=== PATIENT | female | born 1970 ===

== ENCOUNTER 2017-07-25 12:36 | Emergency (ER) | payer OTHER ==
[2017-07-25 12:40] VITALS: BP 129/84; PULSE 71; RESP 22; TEMP 99; O2SAT 99
--- NOTE | 2017-07-25 12:59 | ED PDOC ---
HPI: Trauma/Fall - HPI Time Seen by Provider: 07/25/17 12:38 Chief Complaint (Nursing): Back Pain Chief Complaint (Provider): Fall, Back pain History Per: Patient History/Exam Limitations: no limitations Onset/Duration Of Symptoms: Mins Injury Occurred (Timing): Just Before Arrival Additional Complaint(s): 46 year old female presents to the Emergency Department via EMS for evaluation after sustaining a fall just prior to arrival. Patient reports she slipped and fell on wet floor at the [facility], falling backwards. States that her right leg came out in front of her and the left leg went back. Denies any head injury or LOC. Patient is now complaining of pain to the right knee, right hip, and bilateral lower back. Denies any abdominal pain, chest pain, or other injury. 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 PMD: None Past Medical History Reviewed: Historical Data, Nursing Documentation, Vital Signs Vital Signs: Last Vital Signs Temp 99.0 F 07/25/17 12:38 Pulse 71 07/25/17 12:38 Resp 22 07/25/17 12:38 BP 129/84 07/25/17 12:38 Pulse Ox 99 07/25/17 13:19 - Medical History PMH: No Chronic Diseases - Surgical History Other surgeries: Breast surgery for tumor removal - Family History Family History: States: Unknown Family Hx - Social History Current smoker - smoking cessation education provided: No Alcohol: None Drugs: Denies - Home Medications Home Medications: Ambulatory Orders Medication Instructions Recorded Cyclobenzaprine [Cyclobenzaprine 10 mg PO Q8 PRN #10 tab 07/25/17 HCl] Naproxen [Naprosyn] 500 mg PO BID PRN #10 tab 07/25/17 - Allergies Allergies/Adverse Reactions: Allergies Allergy/AdvReac Type Severity Reaction Status Date / Time No Known Allergies Allergy Verified 07/25/17 12:38 Review of Systems ROS Statement: Except As Marked, All Systems Reviewed And Found Negative Cardiovascular: Negative for: Chest Pain Gastrointestinal: Negative for: Abdominal Pain Musculoskeletal: Positive for: Back Pain, Leg Pain (right hip, right knee) Neurological: Negative for: Other (head injury, LOC) Physical Exam - Reviewed Nursing Documentation Reviewed: Yes Vital Signs Reviewed: Yes - Physical Exam Appears: Positive for: In Acute Distress (mild painful distress) Head Exam: Positive for: ATRAUMATIC, NORMAL INSPECTION, NORMOCEPHALIC Skin: Positive for: Normal Color, Warm, Dry Eye Exam: Positive for: Normal appearance Neck: Positive for: Normal, Painless ROM (with no midline cervical tenderness) Cardiovascular/Chest: Positive for: Regular Rate, Rhythm, Chest Non Tender. Negative for: Murmur Respiratory: Positive for: Normal Breath Sounds. Negative for: Accessory Muscle Use, Respiratory Distress Pulses-Dorsalis Pedis (L): 2+ Pulses-Dorsalis Pedis (R): 2+ Gastrointestinal/Abdominal: Positive for: Normal Exam, Soft, Other (No ecchymosis). Negative for: Tenderness Back: Positive for: Normal Inspection, Other (bilateral paralumbar tenderness). Negative for: L CVA Tenderness, R CVA Tenderness, Vertebral Tenderness Extremity: Positive for: Other (right knee with mild swelling with full ROM actively; right hip with minimal tenderness, with full ROM actively and passively of both hips; right leg is shortened) Neurologic/Psych: Positive for: Alert, Oriented - ECG O2 Sat by Pulse Oximetry: 99 (RA) Pulse Ox Interpretation: Normal - Radiology X-Ray: Interpreted by Me (LS spine, R hip/pelvis, R knee x-rays) X-Ray Interpretation: No Acute Disease Medical Decision Making Medical Decision Making: Initial Impression: Fall, back pain, right knee and hip pain Time: 12:44 Initial Plan: --X-ray right hip w/ pelvis --X-ray lumbar spine --X-ray right knee --Flexeril 10 mg PO --Motrin 600 mg PO 1339 On re-evaluation, pt. seen ambulating with steady unassisted gait. Informed of results. Advised to f/u with [facility] for further evaluation. Scribe Attestation: Documented by Kami Jama, acting as a scribe for Liborio Dennis PA-C. Provider Scribe Attestation: All medical record entries made by the Scribe were at my direction and personally dictated by me. I have reviewed the chart and agree that the record accurately reflects my personal performance of the history, physical exam, medical decision making, and the department course for this patient. I have also personally directed, reviewed, and agree with the discharge instructions and disposition. Disposition - Clinical Impression Clinical Impression: Low back pain, Hip injury, Knee injury - Patient ED Disposition Is Patient to be Admitted: No - Disposition Disposition: Routine/Home Disposition Time: 13:42 Condition: IMPROVED Additional Instructions: Follow up with [facility] for further evaluation. Return to ED immediately if symptoms worsen. Prescriptions: Cyclobenzaprine [Cyclobenzaprine HCl] 10 mg PO Q8 PRN #10 tab PRN Reason: Muscle Spasm Naproxen [Naprosyn] 500 mg PO BID PRN #10 tab PRN Reason: Pain Instructions: Low Back Pain (DC), Hip Pain (DC), Knee Sprain (DC) Forms: [employer] (f. [employer]) (Yemeni) Print Language: MACEDONIAN
--- NOTE | 2017-07-25 14:20 | RAD ---
PROCEDURE: Right Hip Radiographs. HISTORY: trauma COMPARISON: None. FINDINGS: BONES: No acute fracture. JOINTS: Normal. SOFT TISSUES: Normal. OTHER FINDINGS: None. IMPRESSION: No demonstrated fracture or dislocation.
--- NOTE | 2017-07-25 14:20 | RAD ---
PROCEDURE: Radiographs of the Lumbar Spine. HISTORY: trauma COMPARISON: No prior. FINDINGS: BONES: Normal alignment. No listhesis. No fracture. DISC SPACES: Unremarkable. OTHER FINDINGS: None. IMPRESSION: Unremarkable radiographs of the lumbar spine.
--- NOTE | 2017-07-25 14:20 | RAD ---
PROCEDURE: Right Knee Radiographs. HISTORY: trauma COMPARISON: None. FINDINGS: BONES: No acute fracture. JOINTS: Unremarkable. JOINT EFFUSION: None. OTHER FINDINGS: None. IMPRESSION: No demonstrated fracture or dislocation.
== END 2017-07-25 13:58 | disposition home or self-care (01) ==
LOC: H.ER 12:36
DX: M54.5 Low back pain (principal); S89.91XA Unspecified injury of right lower leg, initial encounter; S79.911A Unspecified injury of right hip, initial encounter; W01.0XXA Fall on same level from slipping, tripping and stumbling without subsequent striking against object, initial encounter; Y92.512 Supermarket, store or market as the place of occurrence of the external cause